=== PATIENT | female | born 2000 | race Caucasian/White ===

== ENCOUNTER 2020-11-19 13:35 | Inpatient (IN) | payer SELFPAY ==
[2020-11-19] VITALS (19 sets, daily range): BP systolic 113–138; BP diastolic 66–91; PULSE 90–125; RESP 16–22; TEMP 36.6–37; O2SAT 95–100; BMI 36.6
--- NOTE | 2020-11-19 13:37 | XR_ITS ---
WS: [id number] Portable AP upright chest, 11/19/2020 Clinical Data: reduced breath sounds Comparison: None. Findings: No nodules, masses or effusions are seen. The heart is normal. The pulmonary vascularity is not increased. No pneumonia or pneumothorax is seen. XR/XR chest 1V portable 19502 Impression: Negative chest.
--- NOTE | 2020-11-19 13:37 | ECG_ITS ---
[facility] Test Date: 2020-11-19 Pat Name: Hien Jeter Department: Room: Gender: Female Community Services Officer: : 2000 Requested By: Caio Garcia Order Number: [id number] Hu MD: Nilsa Pretty M.D. Measurements Intervals [place] Rate: 119 P: 53 DC: 147 QRS: 56 QRSD: 102 T: 34 QT: 378 QTc: 533 Interpretive Statements SINUS TACHYCARDIA POSSIBLE ANTERIOR MYOCARDIAL INFARCTION , OF INDETERMINATE AGE [30 ms Q WAVE IN V3/V4, OR R < 0.2 mV IN V4] No previous ECG available for comparison Electronically Signed On 11-21-2020 12:11:42 CDT by Nilsa Pretty M.D. [id number] f
[2020-11-19] MEDS: sodium chloride 0.9% 1,000 ML 999 ML IV (13:52)
--- NOTE | 2020-11-19 13:58 | PC.NURSE ---
Poison Control notified.
[2020-11-19 14:04] LABS: Basophils # 0.1 10^3/uL (0.0-0.1); Basophils % 0.6 %; Eosinophils # 0.2 10^3/uL (0.0-0.8); Eosinophils % 1.6 %; Hematocrit 47.5 % (37.0-47.0); Hemoglobin 15.9 g/dL (11.5-15.3); Lymphocytes # 3.3 10^3/uL (0.8-4.8); Lymphocytes % 32.7 %; Mean Corpuscular HGB Conc 33.5 g/dL (30.0-36.0); Mean Corpuscular Hemoglobin 29.7 pg (28.0-34.0); Mean Corpuscular Volume 88.8 fL (81-99); Mean Platelet Volume 9.8 fL (7.4-10.4); Monocytes # 0.8 10^3/uL (0.2-0.9); Monocytes % 7.5 %; Neutrophils # 5.78 10^3/uL (1.8-7.7); Neutrophils % 57.4 %; Nucleated Red Blood Cells % 0 %; Platelet Count 504 10^3/cmm (130-400); Red Blood Count 5.35 10^6/uL (4.1-5.3); Red Cell Distribution Width 12.2 % (12.1-15.1); White Blood Count 10.1 10^3/uL (4.0-10.0)
--- NOTE | 2020-11-19 14:13 | PC.NURSE ---
Verbal ok from pt to speak to pt sister Moraima. Updated pt sister about pt status and pending labs.
[2020-11-19 14:37] LABS: Magnesium 1.7 mg/dL (1.7-2.3)
[2020-11-19 14:44] LABS: Alanine Aminotransferase 39 U/L (0-33); Albumin Level 4.7 g/dL (3.5-5.2); Alkaline Phosphatase 51 IU/L (35-105); Aspartate Amino Transferase 15 U/L (0-32); Blood Urea Nitrogen 16 mg/dL (6-20); Calcium 9.6 mg/dL (8.5-10.5); Carbon Dioxide 28 mmol/L (22-29); Chloride 97 mmol/L (98-107); Globulin 3.2 g/dL (1.3-4.6); Glomerular Filtration Rate 89.7 mL/min (90-130); Glucose 91 mg/dL (65-115); Osmolality Calculated 287 mOsm/kg (285-295); Sodium 138 mmol/L (136-145); Thyroid Stimulating Hormone 3.98 uIU/mL (0.27-4.20); Total Bilirubin 0.2 mg/dL (0.15-1.2); Total Protein 7.9 g/dL (6.6-8.7)
[2020-11-19 14:45] LABS: Acetaminophen < 5.0 ug/mL (10-30); Salicylate < 0.3 mg/dL (3-10)
[2020-11-19 14:48] LABS: HCG Qualitative Urine. Negative (Negative)
[2020-11-19 14:52] LABS: Add Urine Microscopic? YES; Amphetamines Screen Urine Negative (Negative); Barbiturates Screen Urine Negative (Negative); Benzodiazepines Screen Urine Negative (Negative); Bilirubin Urine Neg (Negative); Blood Urine Neg (Negative); Cocaine Screen Urine Negative (Negative); Glucose Urine UA Norm (Normal); Ketones Urine Negative (Negative); Leukocyte Esterase Urine Negative (Negative); Nitrate Urine Negative (Negative); Opiate Screen Urine Negative (Negative); PCP Screen Urine Negative (Negative); Protein Urine Trace (Negative); Specific Gravity, Urine 1.015 (1.005-1.030); THC Screen Urine Negative (Negative); Urine Appearance Clear (CLEAR); Urine Color Yellow (Yellow); Urobilinogen Urine Norm (Negative); pH Urine 5 (5-7)
[2020-11-19 14:53] LABS: Bacteria Urine 1+ /hpf; RBC Urine 0-4 /hpf (0-2); Squamous Epithelial Cell Urine 0-4 /hpf (0-5); WBC Urine 0-4 /hpf (0-5)
[2020-11-19 14:55] LABS: Add Urine Culture? No
--- NOTE | 2020-11-19 15:13 | ED_ITS ---
HPI - Overdose General: Chief Complaint: Overdose Stated Complaint: SI/ OVERDOSE Time Seen by Provider: 11/19/20 13:37 History of Present Illness: HPI Narrative: Patient is a 20-year-old female with past medical history depression and suicide attempt who comes to the ER complaining of a suicide attempt. She reports at approximately 11:30 AM she took approximately 30 tabs of Benadryl which were 50 mg strength she bought [id number]. She says when she was 14 she attempted to take unknown pills to try to harm herself as well. She is drowsy on arrival but not agitated. She is answering questions and not asleep. She is A&O x4 just tired. complaint: intentional overdose Time: 11:30 Review of Systems General: Reports: 10 or more systems reviewed and unremarkable except in HPI and below Const: Denies: fatigue Eyes: Denies: change in vision, blurry vision or eye redness ENMT: Denies: throat pain, swelling of lips/tongue, ear or mastoid pain or nasal congestion Card: Denies: chest pain, palpitations, irregular heart rhythm, edema, dyspnea on exertion or orthopnea Resp: Denies: dyspnea, productive cough or non-productive cough GI: Denies: abdominal pain, diarrhea or GI cramping : Denies: flank pain, difficulty voiding, urinary frequency or urinary urgency Musc: Denies: neck pain, back pain, extremity pain, joint pain, joint redness, limited range of motion or muscle weakness Skin/Breast: Denies: rash, pruritus, erythema, skin pain or skin tenderness Neuro: Denies: headache(s), numbness in extremities, weakness in extremities, sensory changes, difficulty walking, dizziness, confusion or Slurred speech present Psych: Reports: depression and suicidal ideation; Denies: anxiety or homicidal ideation Endo: Denies: polyuria All/Imm: Denies: urticaria, throat swelling or tongue swelling Physical Exam Const: COMMON NORMALS: no acute distress, average body habitus, patient oriented x3, no limitations, healthy appearing, alert and well nourished GENERAL APPEARANCE: cooperative, comfortable, well kempt and well developed ORIENTATION/CONSCIOUSNESS: Yes awake, Yes oriented to person, Yes oriented to place and Yes oriented to time OTHER: Drowsy HENMT: COMMON NORMALS: normocephalic, external ears normal and Normal external nose present HEAD & SCALP: normal to inspection and normocephalic NOSE: Normal external nose present EXTERNAL EAR: Yes external ears normal MOUTH: Normal oral and palatal mucosa present THROAT: posterior oropharynx normal Eye: COMMON NORMALS: Equal, round and reactive pupils present and EOMs intact bilaterally GENERAL EYE: appearance normal, both eyes and all related structures PUPIL: Yes Equal, round and reactive pupils present Neck/C-Spine: COMMON NORMALS: full ROM, no lymphadenopathy, no meningeal signs and no JVD GENERAL: Yes normal visual inspection Lymph: LYMPHATIC: no lymphadenopathy noted Chest: COMMONS NORMALS: normal inspection of the chest and normal palpation of entire chest wall Resp: COMMON NORMALS: normal respiratory effort, No retractions, No use of accessory muscles, clear to auscultation bilaterally and percussion normal EFFORT & INSPECTION: Yes able to speak in complete sentences AUSCULTATION: clear to auscultation bilaterally PERCUSSION: percussion normal Cardio: COMMON NORMALS: no JVD, regular rhythm, S1 normal heart sound present, S2 normal heart sound present and Peripheral pulses 2+ throughout RATE: tachycardic (Sinus tachycardia) RHYTHM: regular rhythm HEART SOUNDS: S1 normal heart sound present and S2 normal heart sound present PERIPHERAL PULSES: Peripheral pulses 2+ throughout GI: COMMON NORMALS: Normal to inspection, nondistended, normoactive bowel sounds present, Soft to palpation, non-tender and no masses INSPECTION: Yes normal to inspection PALPATION: Yes Soft to palpation : COMMON NORMALS: Yes no CVA tenderness BLADDER/KIDNEY EXAM: Yes no CVA tenderness Back/Pelvis: COMMON NORMALS: no CVA tenderness, thoracic and lumbar spine normal to inspection, no thoracic nor lumbar tenderness and thoraco-lumbar ROM normal Extremity: COMMON NORMALS: normal to inspection, full ROM, capillary refill normal, no joint enlargement and no pedal edema GENERAL: Yes normal exam except as noted Neuro: COMMON NORMALS: patient oriented x3, CN's II-XII intact bilaterally, moves all extremities, no focal motor deficits, no sensory deficits noted and gait normal SENSORIUM/ORIENTATION: Yes alert, Yes oriented to person, Yes oriented to place and Yes oriented to time MENINGEAL SIGNS: Yes no meningeal signs Psych: COMMON NORMALS: mental status grossly normal, Normal thought process present, cooperative, normal affect and speech normal APPEARANCE: Yes well kempt ATTITUDE: Yes calm SPEECH: Yes normal speech THOUGHT PROCESS: Normal thought process present Skin: COMMON NORMALS: no rashes or lesions noted GENERAL SKIN EXAM: no rashes or lesions noted Course Vital Signs: Vital signs: Vital Signs Temperature 98.2 F 11/19/20 13:36 Pulse Rate 122 H 11/19/20 14:18 Respiratory Rate 22 H 11/19/20 14:18 Blood Pressure 127/89 11/19/20 14:18 Pulse Oximetry 100 11/19/20 14:18 MDM - Overdose MDM Narrative: Medical decision making narrative: The patient comes to the ER after apparent suicide attempt taking approximately 30 tablets of Benadryl 50 mg strength. She is drowsy on arrival and in sinus tachycardia. She was given IV fluids and potassium to supplement her hypokalemia of 3.0. Discussed with Dr. Proctor who accepts to the ICU. Poison control was contacted and recommended no acute interventions. Also discussed with Dr. Castro who will be consulted for the case. Lab Data: Labs: Lab Results 11/19/20 11/19/20 11/19/20 Range/Units 12:40 12:40 12:40 WBC 10.1 H (4.0-10.0) 10^3/ uL RBC 5.35 H (4.1-5.3) 10^6/u L Hgb 15.9 H (11.5-15.3) g/dL Hct 47.5 H (37.0-47.0) % MCV 88.8 (81-99) fL MCH 29.7 (28.0-34.0) pg MCHC 33.5 (30.0-36.0) g/dL RDW 12.2 (12.1-15.1) % Plt Count 504 H (130-400) 10^3/c mm MPV 9.8 (7.4-10.4) fL Neut % (Auto) 57.4 % Lymph % (Auto) 32.7 % Caldwell % (Auto) 7.5 % Eos % (Auto) 1.6 % Baso % (Auto) 0.6 % Neut # (Auto) 5.78 (1.8-7.7) 10^3/u L Lymph # (Auto) 3.3 (0.8-4.8) 10^3/u L Caldwell # (Auto) 0.8 (0.2-0.9) 10^3/u L Eos # (Auto) 0.2 (0.0-0.8) 10^3/u L Baso # (Auto) 0.1 (0.0-0.1) 10^3/u L Nucleated RBC % (a uto) 0 % Nucleated RBCs # 0.0 /100WBC Sodium 138 (136-145) mmol/L Potassium 3.0 L (3.5-5.1) mmol/L Chloride 97 L (98-107) mmol/L Carbon Dioxide 28 (22-29) mmol/L Anion Gap 16.0 (5-19) BUN 16 (6-20) mg/dL Creatinine 0.8 (0.5-0.9) mg/dL GFR Calculation 89.7 L (90-130) mL/min Glucose 91 (65-115) mg/dL Calculated Osmolal ity 287 (285-295) mOsm/k g Calcium 9.6 (8.5-10.5) mg/dL Magnesium 1.7 (1.7-2.3) mg/dL Total Bilirubin 0.2 (0.15-1.2) mg/dL AST 15 (0-32) U/L ALT 39 H (0-33) U/L Alkaline Phosphata se 51 (35-105) IU/L Total Protein 7.9 (6.6-8.7) g/dL Albumin 4.7 (3.5-5.2) g/dL Globulin 3.2 (1.3-4.6) g/dL TSH 3.98 (0.27-4.20) uIU/ mL HCG, Qual (Negative) Urine Color (Yellow) Urine Appearance (CLEAR) Urine pH (5-7) Ur Specific Gravit y (1.005-1.030) Urine Protein (Negative) Urine Glucose (UA) (Normal) Urine Ketones (Negative) Urine Blood (Negative) Urine Nitrate (Negative) Urine Bilirubin (Negative) Urine Urobilinogen (Negative) mg/dL Ur Leukocyte Emili ase (Negative) Urine RBC (0-2) /hpf Urine WBC (0-5) /hpf Ur Squamous Epith Cells (0-5) /hpf Amorphous Sediment Urine Bacteria (NONE) /hpf Salicylates < 0.3 L (3-10) mg/dL Urine Opiates Scre en (Negative) ng/mL Acetaminophen < 5.0 L (10-30) ug/mL Ur Barbiturates Sc reen (Negative) ng/mL Ur Phencyclidine S crn (Negative) ng/mL Ur Amphetamines Sc reen (Negative) ng/mL U Benzodiazepines Scrn (Negative) ng/mL Urine Cocaine Scre en (Negative) ng/mL U Marijuana (THC) Screen (Negative) ng/mL 11/19/20 11/19/20 11/19/20 Range/Units 14:30 14:30 14:30 WBC (4.0-10.0) 10^3/ uL RBC (4.1-5.3) 10^6/u L Hgb (11.5-15.3) g/dL Hct (37.0-47.0) % MCV (81-99) fL MCH (28.0-34.0) pg MCHC (30.0-36.0) g/dL RDW (12.1-15.1) % Plt Count (130-400) 10^3/c mm MPV (7.4-10.4) fL Neut % (Auto) % Lymph % (Auto) % [place]dwell % (Auto) % Eos % (Auto) % Baso % (Auto) % Neut # (Auto) (1.8-7.7) 10^3/u L Lymph # (Auto) (0.8-4.8) 10^3/u L [place]dwell # (Auto) (0.2-0.9) 10^3/u L Eos # (Auto) (0.0-0.8) 10^3/u L Baso # (Auto) (0.0-0.1) 10^3/u L Nucleated RBC % (a uto) % Nucleated RBCs # /100WBC Sodium (136-145) mmol/L Potassium (3.5-5.1) mmol/L Chloride (98-107) mmol/L Carbon Dioxide (22-29) mmol/L Anion Gap (5-19) BUN (6-20) mg/dL Creatinine (0.5-0.9) mg/dL GFR Calculation (90-130) mL/min Glucose (65-115) mg/dL Calculated Osmolal ity (285-295) mOsm/k g Calcium (8.5-10.5) mg/dL Magnesium (1.7-2.3) mg/dL Total Bilirubin (0.15-1.2) mg/dL AST (0-32) U/L ALT (0-33) U/L Alkaline Phosphata se (35-105) IU/L Total Protein (6.6-8.7) g/dL Albumin (3.5-5.2) g/dL Globulin (1.3-4.6) g/dL TSH (0.27-4.20) uIU/ mL HCG, Qual Negative (Negative) Urine Color Yellow (Yellow) Urine Appearance Clear (CLEAR) Urine pH 5 (5-7) Ur Specific Gravit y 1.015 (1.005-1.030) Urine Protein Trace (Negative) Urine Glucose (UA) Norm (Normal) Urine Ketones Negative (Negative) Urine Blood Neg (Negative) Urine Nitrate Negative (Negative) Urine Bilirubin Neg (Negative) Urine Urobilinogen Norm (Negative) mg/dL Ur Leukocyte Emili ase Negative (Negative) Urine RBC 0-4 H (0-2) /hpf Urine WBC 0-4 H (0-5) /hpf Ur Squamous Epith Cells 0-4 H (0-5) /hpf Amorphous Sediment Not Reportable Urine Bacteria 1+ H (NONE) /hpf Salicylates (3-10) mg/dL Urine Opiates Scre en Negative (Negative) ng/mL Acetaminophen (10-30) ug/mL Ur Barbiturates Sc reen Negative (Negative) ng/mL Ur Phencyclidine S crn Negative (Negative) ng/mL Ur Amphetamines Sc reen Negative (Negative) ng/mL U Benzodiazepines Scrn Negative (Negative) ng/mL Urine Cocaine Scre en Negative (Negative) ng/mL U Marijuana (THC) Screen Negative (Negative) ng/mL Discharge Plan Discharge Patient Disposition: Admitted As Inpatient Clinical Impression: Diphenhydramine overdose, Depression with suicidal ideation Condition: Stable Coding Level of Care Code ED Draw Furnace Tender for Marquez Green
[2020-11-19] MEDS: potassium chloride ER 20 mEq Tablet 40 MEQ PO (15:17)
--- NOTE | 2020-11-19 16:01 | P.HP_ITS ---
Providers/Chief Complaint Admitting Physician: Ed Cunha MD Chief Complaint: SI/ OVERDOSE History of Present Illness Hien Jeter is a 20 year old female with past medical history of depression, seizure disorder, type 2 diabetes mellitus, history of suicide attempt at age of 14 presents to the ER today after ingesting around 30 tabs of Benadryl along with multiple shots of Ozempic. Patient states she took a months worth of Oze mpic at 1 time. She is supposed to get 1 mg/week. Patient states she took this medication in attempt to harm herself though she does not have any further wishes to do so at this time. She states she did because she was feeling sad at that time. Currently she is complaining of dizziness and a bit of nausea and cold sweats but denies any headache, dizziness, palpitations, abdominal pain. Blood work in the ER shows a white count 10.1, hemoglobin of 15.9, platelets 07/20/2003, sodium of 138, potassium of 3, creatinine of 0.8, AST/ALT of 50/39, alkaline phosphatase of 51, UA negative for any signs of infection with negative nitrite and leukoesterase, U tox negative with EKG showing a QTC of 533. Review of Systems General: Reports: 10 or more systems reviewed and unremarkable except in HPI and below Const: Denies: fever(s), chills, body aches, change in appetite, change in weight, malaise, night sweats, diaphoresis, change in sleep pattern, daytime sleepiness or snoring Eyes: Denies: blurry vision, photophobia, eye discomfort or eye discharge ENMT: Denies: throat pain, enlarged tonsils, hoarseness, mouth pain, oral so res, dry mouth, tinnitus, nasal congestion or post nasal drip Card: Denies: chest pain, palpitations, irregular heart rhythm, edema, swelling of feet/ankles, lightheadedness, syncope, pre-syncope, dyspnea on exertion, orthopnea, leg pain with exertion or acrocyanosis Resp: Denies: dyspnea, productive cough, non-productive cough, wheezing, stridor, pain on inspiration, change in phlegm color, hemoptysis or chest congestion GI: Denies: abdominal pain, nausea, vomiting, hematemesis, coffee ground emesis, dysphagia, heartburn, diarrhea, constipation, bloating, GI cramping, change in bowel habits, pain on defecation, hematochezia or melena : Denies: flank pain, dysuria, urinary frequency, urinary urgency, urinary hesitancy, nocturia or hematuria Musc: Denies: neck pain, back pain, extremity pain, joint pain, joint sw elling, joint redness, joint stiffness or limited range of motion Neuro: Denies: headache(s), numbness in extremities, weakness in extremities, sensory changes, lack of coordination, difficulty walking, frequent falls, dizziness, vertigo, confusion, Slurred speech present, difficulty communicating thoughts or seizure-like activity Psych: Denies: anxiety, depression, mood swings, panic attacks, hopelessness or irritability Endo: Denies: polyuria, polydipsia, tired all the time, cold intolerance, excessive sweating, flushing or heat intolerance Andrew/Lymph: Denies: easy bruising or easy bleeding All/Imm: Denies: tongue swelling, facial swelling or acute wheezing Medications/Allergies Home Medications Medication Instructions Recorded Confirmed Last Taken Type escitalopram oxalate 20 mg PO DAILY@212911/19/20 11/19/20 11/18/20 History oxcarbazepine [Trileptal] 300 mg PO DAILY@212911/19/20 11/19/20 11/18/20 History semaglutide [Ozempic] 1 mg SUBCUT Q7D 11/19/20 11/19/20 11/15/20 History ziprasidone HCl [Geodon] 20 mg PO DAILY@0900 11/19/20 11/19/20 11/19/20 History Allergies Allergy/AdvReac Type Severity Reaction Status Date / Time bupropion [From Wellbutrin] Allergy ALGY-Anaphy Verified 11/19/20 13:47 laxis PFSH Acute PFSH: Medical History (Updated 11/19/20 @ 16:07 by Ed Cunha MD) Depression Seizure disorder Suicide attempt Type 2 diabetes mellitus Family History (Updated 11/19/20 @ 16:06 by Ed Cunha MD) Other Psychiatric illness Denies family history of CAD (coronary artery disease) Cancer Social History (Updated 11/19/20 @ 16:06 by Ed Cunha MD) Smoking and tobacco status: never smoked Alcohol intake: unknown Substance/Drug Use: never Lives independently: No Household members: family Housing: House Vitals/I&O/Wt Last Vital Signs Temp 98.2 F 11/19/20 13:36 Pulse 114 H 11/19/20 15:35 Resp 20 H 11/19/20 15:35 BP 132/77 11/19/20 15:35 Pulse Ox 98 11/19/20 15:35 11/19/20 11/19/20 11/19/20 06:59 14:59 22:59 Intake Total 1000 / 1000 Balance 1000 / 1000 Weight last 48 hrs Weight 99.79 kg Physical Exam Narrative: EXAM NARRATIVE: General: No acute distress, AO x3, anxious, having facial tics HEENT: PERRLA, pupils bilaterally equal and reactive Chest: Normal vesicular breath sounds, no added sounds, equal good air entry bilaterally CVS: S1-S2 regular, no murmurs, tachycardia, no gallops, no rubs Abdomen: Soft, nontender, no organomegaly, bowel sounds present Neuro: No focal deficits, no facial deformity, AO x3, power 5/5 in all limbs Psych: COMMON NORMALS: cooperative and speech normal ATTITUDE: Yes calm and Yes evasive ACTIVITY/MOTOR BEHAVIOR: No appropriate eye contact SPEECH: Yes normal speech Data : 11/19/20 12:40 11/19/20 12:40 A&P Assessment and plan (1) Diphenhydramine overdose: Status: Acute (2) Depression with suicidal ideation: Status: Acute (3) Type 2 diabetes mellitus: Status: Acute (4) Seizure disorder: Status: Acute (5) Drug overdose, intentional: Status: Acute Additional A&P Information 20-year-old female with past medical history of suicide attempt, depression, seizure disorder, type 2 diabetes mellitus presented to the ER after consuming 30 tablets of Benadryl and multiple dose of Ozempic as suicide attempt attempt. Drug overdose: Discussed case with poison control. We will have to monitor for anticholinergic effects. Monitor for tachycardia, seizure, QRS widening. Admit to ICU. Seizure precaution, fall precaution. Continue with IV fluids D5 half NS 20 mg potassium at 75 cc/h. Sitter at bedside. Psych consult. 96-hour hold. For overdose with Ozempic. Drug has a half-life of 7 days but would peak in 1 to 3 days. Mostly would cause nausea and abdominal pain but only causes hypoglycemia if taken with other OHA's. On review of medication patient is not on either antidiabetic medications. Fingerstick every 4 hours. For now hold off on any insulin. Continue other chronic medications like to reptile. We will hold off on Geodon and Celexa for now. Full code. Lovenox for DVT prophylaxis. Carb consistent diet. Attestations Medical Necessity Statement*: Patient requires admission for more than 2 midnights for suicide attempt and drug overdose with Benadryl and ozempic Time Spent in Patient Care: Greater than 35 minutes (>than 50% of time spent in counselling and/or direct pt care on unit) . Coding Level of Care Code Acute Vet Tech for Marquez Kumarid Diagnoses Diphenhydramine overdose T45.0X1A Depression with suicidal ideation F32.9; R45.851 Type 2 diabetes mellitus E11.9 Seizure disorder G40.909 Drug overdose, intentional T50.902A
[2020-11-19 16:37] LABS: NT Pro B Type Natriuretic Pept 17 pg/mL (0-125); Procalcitonin 0.04 ng/mL (0-0.5)
[2020-11-19 16:48] LABS: Iron 93 ug/dL (37-145); Total Iron Binding Capacity 344 mcg/dl; Unsaturated Iron Binding 251 ug/dL (112-347)
[2020-11-19 17:02] LABS: Alcohol Level < 10 mg/dL (0-10)
[2020-11-19 17:58] LABS: Glucose Point of Care 113 mg/dL (70-110)
[2020-11-19] MEDS: famotidine 20 mg/2 mL INJ IVP (18:26)
[2020-11-19] MEDS: enoxaparin 40 mg/0.4 mL Syringe SUBCUT (18:26)
[2020-11-19] MEDS: D5-NS 0.45% + KCL 20 mEq 20 MEQ/1,000 ML BAG 75 MEQ IV (18:27)
[2020-11-19] MEDS: OXcarbazepine 300 mg Tablet PO (20:39)
[2020-11-19 20:43] LABS: Glucose Point of Care 86 mg/dL (70-110)
--- NOTE | 2020-11-19 20:56 | PC.NURSE ---
Blood Glucose 86, sprite given to patient. V/S remain stable. Sitter at bedside.
[2020-11-19 23:22] LABS: Magnesium 1.6 mg/dL (1.7-2.3); Potassium 3.9 mmol/L (3.5-5.1)
[2020-11-19 23:50] LABS: Glucose Point of Care 91 mg/dL (70-110)
[2020-11-20] VITALS (20 sets, daily range): BP systolic 118–136; BP diastolic 78–99; PULSE 76–98; RESP 9–24; TEMP 36.7–37.1; O2SAT 93–98
[2020-11-20] MEDS: potassium chloride ER 20 mEq Tablet 40 MEQ PO (00:19)
[2020-11-20] MEDS: famotidine 20 mg/2 mL INJ IVP ×2 (03:51→16:35)
[2020-11-20 04:04] LABS: Glucose Point of Care 88 mg/dL (70-110)
[2020-11-20 04:58] LABS: Basophils # 0.1 10^3/uL (0.0-0.1); Basophils % 0.6 %; Eosinophils # 0.1 10^3/uL (0.0-0.8); Eosinophils % 1.3 %; Hematocrit 40.7 % (37.0-47.0); Hemoglobin 13.5 g/dL (11.5-15.3); Lymphocytes # 4.1 10^3/uL (0.8-4.8); Lymphocytes % 37.4 %; Mean Corpuscular HGB Conc 33.2 g/dL (30.0-36.0); Mean Corpuscular Hemoglobin 29.8 pg (28.0-34.0); Mean Corpuscular Volume 89.8 fL (81-99); Mean Platelet Volume 10.3 fL (7.4-10.4); Monocytes % 8.8 %; Neutrophils # 5.74 10^3/uL (1.8-7.7); Neutrophils % 51.8 %; Nucleated Red Blood Cells % 0 %; Platelet Count 459 10^3/cmm (130-400); Red Blood Count 4.53 10^6/uL (4.1-5.3); Red Cell Distribution Width 12.1 % (12.1-15.1); White Blood Count 11.1 10^3/uL (4.0-10.0)
[2020-11-20 05:27] LABS: Alanine Aminotransferase 25 U/L (0-33); Albumin Level 3.7 g/dL (3.5-5.2); Alkaline Phosphatase 41 IU/L (35-105); Blood Urea Nitrogen 13 mg/dL (6-20); Calcium 8.6 mg/dL (8.5-10.5); Carbon Dioxide 25 mmol/L (22-29); Chloride 104 mmol/L (98-107); Creatine Phosphokinase 62 U/L (26-192); Globulin 2.6 g/dL (1.3-4.6); Glomerular Filtration Rate 104.6 mL/min (90-130); Glucose 85 mg/dL (65-115); Osmolality Calculated 283 mOsm/kg (285-295); Phosphorus 2.4 mg/dL (2.5-4.5); Sodium 137 mmol/L (136-145); Total Bilirubin 0.3 mg/dL (0.15-1.2); Total Protein 6.3 g/dL (6.6-8.7)
[2020-11-20 05:30] LABS: Estmated Average Glucose 100; Hemoglobin A1C 5.1 % (4.0-6.0)
[2020-11-20 05:32] LABS: Anion Gap 12.2 (5-19); Aspartate Amino Transferase 15 U/L (0-32); Potassium 4.2 mmol/L (3.5-5.1)
--- NOTE | 2020-11-20 06:00 | ECG_ITS ---
[facility] Test Date: 2020-11-20 Pat Name: Hien Jeter Department: Room: ICU06 Gender: Female Chair Installer: : 2000 Requested By: Ed Cunha Order Number: [id number] Fritz MD: Nilsa Pretty M.D. Measurements Intervals [place] Rate: 89 P: 48 RI: 153 QRS: 27 QRSD: 97 T: 30 QT: 374 QTc: 457 Interpretive Statements SINUS RHYTHM POSSIBLE ANTERIOR MYOCARDIAL INFARCTION [30 ms Q WAVE IN V3/V4, OR R < 0.2 mV IN V4], PROBABLY OLD Compared to ECG 11/19/2020 14:01:20 Sinus tachycardia no longer present Myocardial infarct finding still present Electronically Signed On 11-21-2020 12:20:18 CDT by Nilsa Pretty M.D. [id number]
[2020-11-20] MEDS: D5-NS 0.45% + KCL 20 mEq 20 MEQ/1,000 ML BAG 75 MEQ IV (08:02)
[2020-11-20 08:30] LABS: Glucose Point of Care 87 mg/dL (70-110)
--- NOTE | 2020-11-20 11:34 | PM.PN ---
Subjective Subjective: Interval history: No acute events overnight. Patient has remained hemodynamically stable. Denies any nausea, vomiting, headache. Seems more jovial today. Sitting up in bed. Afebrile overnight. Vitals/I&O/Wt Last Vital Signs Temp 98.7 F 11/20/20 10:00 Pulse 94 11/20/20 10:00 Resp 18 11/20/20 10:00 BP 127/84 11/20/20 10:00 Pulse Ox 93 11/20/20 10:00 11/19/20 11/20/20 11/20/20 22:59 06:59 14:59 Intake Total 1440 / 1440 252 / 1692 1000 / 1000 Balance 1440 / 1440 252 / 1692 1000 / 1000 Weight last 48 hrs Weight 108.499 kg Weight 99.79 kg Physical Exam Narrative: EXAM NARRATIVE: General: No acute distress, AO x3, having facial tics HEENT: PERRLA, pupils bilaterally equal and reactive Chest: Normal vesicular breath sounds, no added sounds, equal good air entry bilaterally CVS: S1-S2 regular, no murmurs, tachycardia, no gallops, no rubs Abdomen: Soft, nontender, no organomegaly, bowel sounds present Neuro: No focal deficits, no facial deformity, AO x3, power 5/5 in all limbs Psych: COMMON NORMALS: cooperative and speech normal ATTITUDE: Yes calm and Yes evasive ACTIVITY/MOTOR BEHAVIOR: No appropriate eye contact SPEECH: Yes normal speech Data : 11/20/20 04:15 11/20/20 04:15 Micro: Microbiology 11/19/20 16:44 Blood Culture - Preliminary Blood SPECIMEN COLLECTED 11/19/20 16:39 Blood Culture - Preliminary Blood SPECIMEN COLLECTED A&P Assessment and plan (1) Diphenhydramine overdose: Status: Acute (2) Depression with suicidal ideation: Status: Acute (3) Type 2 diabetes mellitus: Status: Acute (4) Seizure disorder: Status: Acute (5) Drug overdose, intentional: Status: Acute Additional A&P Information 20-year-old female with past medical history of suicide attempt, depression, seizure disorder, type 2 diabetes mellitus presented to the ER after consuming 30 tablets of Benadryl and multiple dose of Ozempic as suicide attempt attempt. Drug overdose: Discussed case with poison control. We will have to monitor for anticholinergic effects. Monitor for tachycardia, seizure, QRS widening. Seizure precaution, fall precaution. Patient is eating and drinking well. Switch to regular diet. Stop IV fluids. Sitter at bedside. Psych consult. Transfer to FORENSIC EXAMINER once medically cleared. 96-hour hold. Electrolytes stable. For overdose with Ozempic. Drug has a half-life of 7 days but would peak in 1 to 3 days. Mostly would cause nausea and abdominal pain but only causes hypoglycemia if taken with other OHA's. On review of medication patient is not on either antidiabetic medications. Fingerstick every 4 hours. For now hold off on any insulin. Type 2 diabetes mellitus: HbA1c 5.1. Patient is Ozempic at home. For now continue to hold off due to a drug overdose. Continue other chronic medications like oxcarbazepine. We will hold off on Geodon and Celexa for now. Full code. Lovenox for DVT prophylaxis. Regular diet. Attestations Medical Necessity Statement*: Requires further hospitalization for management of suicidal ideation, drug overdose. 96-hour hold. Time Spent in Patient Care: Greater than 35 minutes (>than 50% of time spent in counselling and/or direct pt care on unit). Coding Level of Care Code Acute It Technician for Chg Fwd Exam Problem Focused Diagnoses Diphenhydramine overdose T45.0X1A Depression with suicidal ideation F32.9; R45.851 Type 2 diabetes mellitus E11.9 Seizure disorder G40.909 Drug overdose, intentional T50.902A
--- NOTE | 2020-11-20 12:37 | PC.CHAP ---
Pastoral Care Encounter/Spiritual Assessment Type of Contact [] Declined culinary instructor visit [] Patient/Family/Request visit [] Outpatient visit [] Follow-up visit [] Physician referral [] Code/Alert [] Routine visit [XX] Staff referral [] Actively dying [] Patient sleeping [] Family support [] [] Out of room [] Palliative care [] [] Receiving care in room [] Pre-surgical visit [] Trauma [] Long length of stay [] ICU visit [] Other: Relational/Emotional Strength [] Patient feels connected with others/family/visitors/staff [XX] Distress [] Loneliness/isolation [] Abandonment Spirituality of Patient [] Person of Ryanne [XX] Attends Buddhist of their Ryanne [] Believes in Prayer [] Reads Bible or Denominational materials [XX] There are Spiritual issues to be addressed Metal Solderer Interventions [XX] Prayer [XX] Active listening [XX] Non-anxious presence [] Spiritual/emotional support [] Crisis/trauma care [] Spiritual counseling [] Bereavement support [] Provided bereavement packet [] Provided Bible/devotional materials [] Provided toy/stuffed animal, coloring book to patient or family member [] Provided Communion [] Anointing/Zoar [] Salvation [XX] Completed spiritual assessment [] Other: Impact on Illness or Injury [] Angry [] Fearful [] Anxious [] Often cries [] Exhaustion [] Unable to work [] Unable to attend denominational [] Unable to walk/stand [] Unable to read [] Unable to drive [] Unable to eat/drink [] Unable to sleep [] Unable to be with family [] Patient intubated [XX] Other: hopelessness and depression Summary: Pt attempted to take her life by taking sleeping pills. Pt's mother found her and took her to the ambulance. Pt and her family moved 1 month ago from [place]. Pt's parents lived her previously, but pt and her sister have never lived here. Pt willing to answer questions but never elaborated on her answers. 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 Pt could not describe what brings her kirstie. When asked what a normal day is like for her, she said that she isolates. Pt was interested in prayer (culinary instructor and pt prayed); pt is also thankful that she remains alive. Time spent with patient: 25 mins
--- NOTE | 2020-11-20 13:30 | PM.PSYCN ---
Providers/Reason for Consult Consulting Physican/Specialty*: Bria Castro DO Reason for Consult*: Overdose/depression Attending Physician: Ed Cunha MD Psych Consult HPI History of Present Illness Hien Jeter is a 20 year old female with unclear past psychiatric history but reports being managed by a psychiatrist in [facility] prior to moving to [facility] in the last couple months presented to the emergency department after overdose of Benadryl after an argument with her parents. Patient states that she had been feeling depressed for the past couple of months since moving to the local area from [place], states that she had had intermittent suicidal thoughts but states that she had no intent or plan of ending her life but became overwhelmed by her emotions. Patient reports past episodes of depression lasting for several weeks on a daily basis with significant impairment related to her depressive symptoms. She reports past suicide attempt by overdose at age 14. Patient reports past manic/hypomanic episodes in which she had a decreased need for sleep, sense of feeling pressured, irritability with last episode occurring in the past couple of weeks but states that it started around age 14 and has been treated with mood stabilizing medication including most recently Trileptal, Geodon and Lexapro. She currently denies any suicidal thoughts or thoughts about self-harm. Patient states that she has incidence of hearing her name called or hearing things particularly during time periods in which she has worsening depressive symptoms, currently denies any auditory or visual hallucinations, denies any delusions. Patient has a history of motor tics as well as obsessions and compulsions and is currently treated with Lexapro 30 mg daily. Psychiatric review of systems is otherwise negative. Patient denies any contact with a psychiatrist or mental health in the local area and denies any past counseling or therapy. 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 Review of Systems General: Reports: 10 or more systems reviewed and unremarkable except in HPI and below Meds Current Medications: Current Medications Generic Name Dose Route Start Last Admin Trade Name Freq PRN Reason Stop Dose Admin Enoxaparin Sodium 40 mg 11/19/20 18:00 11/19/20 18:26 Enoxaparin 40 Mg /0.4 Ml Syringe SUBCUT 40 mg Q24H ADRIENNE Administration Famotidine 20 mg 11/19/20 16:34 11/20/20 03:51 Famotidine 20 Mg /2 Ml Inj IVP 20 mg Q12H ADRIENNE Administration Potassium Chloride /Dextrose/Sod Cl 20 meq in 1,000 m ls @ 75 mls/hr 11/19/20 16:34 11/20/20 08:02 D5-Ns 0.45% + Jaswant l 20 Meq IV 75 mls/hr .[id number] ADRIENNE Administration Oxcarbazepine 300 mg 11/19/20 21:30 11/19/20 20:39 Oxcarbazepine 30 0 Mg Tablet PO 300 mg DAILY@2130 ADRIENNE Administration PFSH NPU PFSH: Medical History Depression Seizure disorder Suicide attempt Type 2 diabetes mellitus Family History Other Psychiatric illness Denies family history of CAD (coronary artery disease) Cancer Social History Smoking and tobacco status: never smoked Alcohol intake: unknown Substance/Drug Use: never Lives independently: No Household members: family Housing: House Other Psychiatric History: Other Psychiatric History: Reports first contact with mental health being at age 14 secondary to worsening behaviors, mood symptoms, overdose attempt, psychiatric hospitalization Denies any contact with mental health in the local area, last contact was in [facility] couple months ago prior to moving to the local area Mental Status Exam MSE Comments: Sitting up in bed, preparing to eat lunch, overweight, wearing hospital gown, calm, cooperative, occasional motor tics with eyebrows, good eye contact, polite and interactive Psychomotor activity is neither increased or decreased, no agitation Speech is somewhat soft, normal rate, spontaneous, clear articulation, not pressured I feel exhausted, congruent affect, not labile Alert and oriented to person, place, time, situation Memory and concentration appear to be intact per interview Intellectual functioning appears to be average based on vocabulary, interview Thought process, linear, no flight of ideas, no looseness of associations Thought content, no delusions, no hallucinations, no suicidal or homicidal ideation Insight and judgment appear to be fair Vitals/I&O/Wt Last Vital Signs Temp 98.8 F 11/20/20 11:00 Pulse 95 11/20/20 12:00 Resp 20 H 11/20/20 12:00 BP 133/90 11/20/20 12:00 Pulse Ox 95 11/20/20 12:00 11/19/20 11/20/20 11/20/20 22:59 06:59 14:59 Intake Total 1440 / 1440 252 / 1692 1000 / 1000 Balance 1440 / 1440 252 / 1692 1000 / 1000 Weight last 48 hrs Weight 108.499 kg Weight 99.79 kg Data NPU Micro: Micro: Microbiology 11/19/20 16:44 Blood Culture - Pr eliminary Blood SPECIMEN COLLE ENRIQUETA 11/19/20 16:39 Blood Culture - Pr eliminary Blood SPECIMEN [facility] Microbiology 11/19/20 16:44 Blood Blood Culture - Preliminary SPECIMEN COLLECTED 11/19/20 16:39 Blood Blood Culture - Preliminary SPECIMEN COLLECTED A&P Assessment and plan (1) Drug overdose, intentional: Status: Acute Qualifiers: Encounter type: subsequent encounter Qualified Code(s): T50.902D - Poisoning by unspecified drugs, medicaments and biological substances, intentional self-harm, subsequent encounter (2) Bipolar disorder, unspecified: Status: Acute Qualifiers: Active/Remission status: currently active Current bipolar episode type: depressed Current episode severity: severe Psychotic features: with psychotic features Qualified Code(s): F31.5 - Bipolar disorder, current episode depressed, severe, with psychotic features Additional A&P Information Patient reports recent argument with parents leading to impulsive overdose, reports worsening depressive symptoms over the past couple months with psychotic features, treated with Trileptal, Geodon, Lexapro. Continues to report severe depressive symptoms with impairment. Psychiatric hospitalization is indicated for medication stabilization, observation, coordination for safe discharge including post discharge mental health follow-up. Continue to hold home medications while in ICU with plan to restart after transfer to inpatient psychiatry Attestations NPU Medical Necessity Statement*: Continues to be under monitoring post toxic ingestion Time Spent in Patient Care: Greater than 35 minutes (>than 50% of time spent in counselling and/or direct pt care on unit). Coding Level of Care Code Acute Managed Services Sales Consultant for Marquez Green Diagnoses Drug overdose, intentional T50.902D Encounter type: subsequent encounter Bipolar disorder, unspecified F31.5 Active/Remission status: currently active Current bipolar episode type: depressed Current episode severity: severe Psychotic features: with psychotic features
--- NOTE | 2020-11-20 16:41 | PC.NURSE ---
Addendum entered by Carlene Quintero RN 11/20/20 16:42: error. time wasnt changed on note. this occurred at 0650 Original Note: bedside report received. no needs or SI voiced at this time. Room checked for safety. sitter at bedside.
[2020-11-20] MEDS: enoxaparin 40 mg/0.4 mL Syringe SUBCUT (18:33)
[2020-11-20 19:58] LABS: Glucose Point of Care 87 mg/dL (70-110)
[2020-11-20 20:40] LABS: Glucose Point of Care 91 mg/dL (70-110)
[2020-11-20] MEDS: OXcarbazepine 300 mg Tablet PO (21:13)
[2020-11-21] VITALS (14 sets, daily range): BP systolic 101–134; BP diastolic 61–84; PULSE 65–103; RESP 14–24; TEMP 36.5–37.1; O2SAT 9–100; BMI 39.2
[2020-11-21 00:08] LABS: Glucose Point of Care 78 mg/dL (70-110)
[2020-11-21 00:44] LABS: Glucose Point of Care 116 mg/dL (70-110)
[2020-11-21 02:23] LABS: Glucose Point of Care 72 mg/dL (70-110)
[2020-11-21 03:08] LABS: Glucose Point of Care 109 mg/dL (70-110)
[2020-11-21 04:38] LABS: Basophils # 0.1 10^3/uL (0.0-0.1); Basophils % 0.5 %; Eosinophils # 0.2 10^3/uL (0.0-0.8); Eosinophils % 1.4 %; Hematocrit 42.2 % (37.0-47.0); Hemoglobin 14.1 g/dL (11.5-15.3); Lymphocytes # 4.4 10^3/uL (0.8-4.8); Lymphocytes % 36.9 %; Mean Corpuscular HGB Conc 33.4 g/dL (30.0-36.0); Mean Corpuscular Volume 89.8 fL (81-99); Mean Platelet Volume 9.4 fL (7.4-10.4); Monocytes % 8.5 %; Neutrophils # 6.26 10^3/uL (1.8-7.7); Neutrophils % 52.4 %; Nucleated Red Blood Cells % 0 %; Platelet Count 413 10^3/cmm (130-400); Red Cell Distribution Width 11.9 % (12.1-15.1); White Blood Count 11.9 10^3/uL (4.0-10.0)
[2020-11-21 05:14] LABS: Alanine Aminotransferase 23 U/L (0-33); Albumin Level 3.8 g/dL (3.5-5.2); Alkaline Phosphatase 44 IU/L (35-105); Anion Gap 12.1 (5-19); Aspartate Amino Transferase 13 U/L (0-32); Blood Urea Nitrogen 10 mg/dL (6-20); Calcium 8.7 mg/dL (8.5-10.5); Carbon Dioxide 27 mmol/L (22-29); Chloride 103 mmol/L (98-107); Globulin 2.6 g/dL (1.3-4.6); Glomerular Filtration Rate 104.6 mL/min (90-130); Glucose 98 mg/dL (65-115); Osmolality Calculated 285 mOsm/kg (285-295); Potassium 4.1 mmol/L (3.5-5.1); Sodium 138 mmol/L (136-145); Total Bilirubin 0.2 mg/dL (0.15-1.2); Total Protein 6.4 g/dL (6.6-8.7)
[2020-11-21] MEDS: famotidine 20 mg/2 mL INJ IVP (05:33)
--- NOTE | 2020-11-21 05:37 | PC.NURSE ---
Nursing summary Pt blood sugars fluctuated throughout night, several snacks provided with post snack accu checks. Facial tardive dyskinesia noted, in shift change report this was reported as baseline and MD aware. Pt remained seizure free throught shift, was pleasant and cooperative, at beginning of shift she did have tearful episode, expressed feelings and said she felt better afterwards. She verbally agreed to report feelings of suicide and to do no harm to self.
[2020-11-21 06:32] LABS: Glucose Point of Care 112 mg/dL (70-110)
[2020-11-21 07:54] LABS: Glucose Point of Care 94 mg/dL (70-110)
--- NOTE | 2020-11-21 10:19 | P.PN_ITS ---
Subjective Subjective: Interval history: No acute events overnight. Complaining of itching on body on and off. She says she has itching at home also for which takes benadryl. Patient has remained hemodynamically stable. Denies any nausea, vomiting, headache. Seems more jovial today. Sitting up in bed. Afebrile overnight. Vitals/I&O/Wt Last Vital Signs Temp 98.1 F 11/21/20 04:00 Pulse 78 11/21/20 07:53 Resp 14 11/21/20 07:53 BP 128/84 11/21/20 07:53 Pulse Ox 98 11/21/20 07:53 11/20/20 11/21/20 11/21/20 22:59 06:59 14:59 Intake Total 889.25 / 1889.25 1038 / 2927.25 120 / 120 Output Total Balance 889.25 / 1889.25 1037 / 2926.25 120 / 120 Weight last 48 hrs Weight 107.456 kg Weight 108.499 kg Weight 99.79 kg Physical Exam Narrative: EXAM NARRATIVE: General: No acute distress, AO x3, having facial tics HEENT: PERRLA, pupils bilaterally equal and reactive Chest: Normal vesicular breath sounds, no added sounds, equal good air entry bilaterally CVS: S1-S2 regular, no murmurs, tachycardia, no gallops, no rubs Abdomen: Soft, nontender, no organomegaly, bowel sounds present Neuro: No focal deficits, no facial deformity, AO x3, power 5/5 in all limbs Psych: COMMON NORMALS: cooperative and speech normal ATTITUDE: Yes calm and Yes evasive ACTIVITY/MOTOR BEHAVIOR: No appropriate eye contact SPEECH: Yes normal speech Data : 11/21/20 04:19 11/21/20 04:19 Micro: Microbiology 11/19/20 16:44 Blood Culture - Preliminary Blood NEGATIVE TO DATE 11/19/20 16:39 Blood Culture - Preliminary Blood NEGATIVE TO DATE A&P Assessment and plan (1) Diphenhydramine overdose: Status: Acute (2) Depression with suicidal ideation: Status: Acute (3) Type 2 diabetes mellitus: Status: Acute (4) Seizure disorder: Status: Acute (5) Drug overdose, intentional: Status: Acute Qualifiers: Encounter type: subsequent encounter Qualified Code(s): T50.902D - Poisoning by unspecified drugs, medicaments and biological substances, intentional self-harm, subsequent encounter Additional A&P Information 20-year-old female with past medical history of suicide attempt, depression, seizure disorder, type 2 diabetes mellitus presented to the ER after consuming 30 tablets of Benadryl and multiple dose of Ozempic as suicide attempt attempt. Drug overdose: Discussed case with poison control. We will have to monitor for anticholinergic effects. Monitor for tachycardia, seizure, QRS widening. Seizure precaution, fall precaution. Patient is eating and drinking well. Switch to regular diet. Sitter at bedside. Psych consult. Transfer to NPU. Patient medically stable to be moved. 96-hour hold. Electrolytes stable. For overdose with Ozempic. Drug has a half-life of 7 days but would peak in 1 to 3 days. Mostly would cause nausea and abdominal pain but only causes hypoglycemia if taken with other OHA's. On review of medication patient is not on either antidiabetic medications. Fingerstick AC and HS. Insulin modified low-dose protocol. Type 2 diabetes mellitus: HbA1c 5.1. Patient is Ozempic at home. For now continue to hold off due to a drug overdose. Continue other chronic medications like oxcarbazepine. We will hold off on Geodon and Celexa for now. Full code. Lovenox for DVT prophylaxis. Regular diet. Attestations Medical Necessity Statement*: Requires hospitalization for management of suicide attempt and drug overdose. 96 hr hold. Time Spent in Patient Care: Greater than 35 minutes (>than 50% of time spent in counselling and/or direct pt care on unit) . Coding Level of Care Code Acute Railroad Emergency Services Manager for [employer] Green Exam Problem Focused Diagnoses Diphenhydramine overdose T45.0X1A Depression with suicidal ideation F32.9; R45.851 Type 2 diabetes mellitus E11.9 Seizure disorder G40.909 Drug overdose, intentional T50.902D Encounter type: subsequent encounter
[2020-11-21 11:07] LABS: Glucose Point of Care 106 mg/dL (70-110)
[2020-11-21] MEDS: loratadine 10 mg Tablet PO ×2 (11:25→20:09)
--- NOTE | 2020-11-21 12:13 | ECG_ITS ---
[facility] Test Date: 2020-11-21 Pat Name: Hien Jeter Department: Room: 155 Gender: Female Lens Coater: : 2000 Requested By: Bria Valdez Order Number: [id number] Fritz MD: Nilsa rPetty M.D. Measurements Intervals [place] Rate: 108 P: 46 NE: 143 QRS: 37 QRSD: 90 T: 12 QT: 320 QTc: 429 Interpretive Statements SINUS TACHYCARDIA POSSIBLE LEFT ATRIAL ENLARGEMENT [-0.1mV P WAVE IN V1/V2] POSSIBLE ANTERIOR MYOCARDIAL INFARCTION [30 ms Q WAVE IN V3/V4, OR R < 0.2 mV IN V4], PROBABLY OLD Compared to ECG 11/20/2020 06:40:59 Sinus rhythm no longer present Myocardial infarct finding still present Electronically Signed On 11-23-2020 17:43:17 CDT by Nilsa Pretty M.D. [email or web address] [id number]
--- NOTE | 2020-11-21 12:30 | P.HP_ITS ---
Providers/Chief Complaint Admitting Physician: Ed Cunha MD Chief Complaint: SI/ OVERDOSE HPI NPU History of Present Illness Hien Jeter is a 20 year old female her disorder unspecified admitted to the ICU after toxic ingestion of Benadryl, patient subsequently monitored with serial ECG and observation and determined to be medically stable with transfer to inpatient psychiatry. Patient reports current depressive symptoms 11/22, denies any interval suicidal ideation or thoughts about self-harm. Patient continues to be remorseful about which she describes as impulsive, reactive gesture in the context of argument with her mother and sister. Reports seeing some shadows but states that she feels like it may be from sleep restriction secondary to poor sleep over the past couple days since toxic ingestion. She denies any auditory hallucinations, denies any delusions. Denies any interval manic or hypomanic related symptoms. Reports improving appetite, per above, states sleep is still poor. Patient communicates her understanding of need for post discharge counseling as well as gradual reintroduction of home medication. Review of Systems 2 General: Reports: 10 or more systems reviewed and unremarkable except in HPI and below Meds NPU Home Medications Medication Instructions Recorded Confirmed Last Taken Type escitalopram oxalate 20 mg PO DAILY@212911/19/20 11/19/20 11/18/20 History oxcarbazepine [Trileptal] 300 mg PO DAILY@212911/19/20 11/19/20 11/18/20 History semaglutide [Ozempic] 1 mg SUBCUT Q7D 11/19/20 11/19/20 11/15/20 History ziprasidone HCl [Geodon] 20 mg PO DAILY@0900 11/19/20 11/19/20 11/19/20 History Allergies Allergy/AdvReac Type Severity Reaction Status Date / Time bupropion [From Wellbutrin] Allergy ALGY-Anaphy Verified 11/19/20 13:47 laxis PFSH NPU PFSH: Medical History Depression Seizure disorder Suicide attempt Type 2 diabetes mellitus Family History Other Psychiatric illness Denies family history of CAD (coronary artery disease) Cancer Social History (Reviewed 11/21/20 @ 12:31 by DOROTHY Shearer Smoking and tobacco status: never smoked Alcohol intake: unknown Substance/Drug Use: never Lives independently: No Household members: family Housing: House Other Psychiatric History: Other Psychiatric History: No changes since consult note completed by this interviewer yesterday, 11/20/2020 Mental Status Exam MSE Comments: Patient is sitting on her bed, appropriately groomed and dressed in hospital scrubs, overweight, calm, cooperative, good eye contact Psychomotor activity is neither increased or decreased, no agitation Speech is normal volume, normal rate, spontaneous, clear articulation, not pressured I feel exhausted, congruent affect, not labile Alert and oriented to person, place, time, situation Memory and concentration appear to be intact per interview Intellectual functioning appears to be average based on vocabulary, interview Thought process, linear, no flight of ideas, no looseness of associations Thought content, no delusions, no hallucinations, no suicidal or homicidal ideation Insight and judgment appear to be fair Vitals/I&O/Wt Last Vital Signs Temp 97.7 F 11/21/20 10:00 Pulse 72 11/21/20 10:00 Resp 14 11/21/20 10:00 BP 124/81 11/21/20 10:00 Pulse Ox 9 L 11/21/20 10:00 11/20/20 11/21/20 11/21/20 22:59 06:59 14:59 Intake Total 889.25 / 1889.25 1038 / 2927.25 240 / 240 Output Total Balance 889.25 / 1889.25 1037 / 2926.25 240 / 240 Weight last 48 hrs Weight 107.048 kg Weight 107.456 kg Weight 108.499 kg Weight 99.79 kg Data NPU : 11/21/20 04:19 11/21/20 04:19 Micro: Microbiology 11/19/20 16:44 Blood Culture - Preliminary Blood NEGATIVE TO DATE 11/19/20 16:39 Blood Culture - Preliminary Blood NEGATIVE TO DATE Microbiology 11/19/20 16:44 Blood Blood Culture - Preliminary NEGATIVE TO DATE 11/19/20 16:39 Blood Blood Culture - Preliminary NEGATIVE TO DATE A&P Assessment and plan (1) Drug overdose, intentional: Status: Acute Qualifiers: Encounter type: subsequent encounter Qualified Code(s): T50.902D - Poisoning by unspecified drugs, medicaments and biological substances, intentional self-harm, subsequent encounter (2) Bipolar disorder, unspecified: Status: Acute Qualifiers: Active/Remission status: currently active Current bipolar episode type: depressed Current episode severity: severe Psychotic features: with psychotic features Qualified Code(s): F31.5 - Bipolar disorder, current episode depressed, severe, with psychotic features Additional A&P Information Patient reports improving mood symptoms although continues report significant depressive symptoms with no interval suicidal ideation since consult evaluation yesterday. Patient has history of OCD and currently denies any bothersome obsessions or compulsions but reports intermittent anxiety which is exacerbated by ongoing life stress. Patient would benefit from slow reintroduction of home medication, although patient does have history per chart of seizure disorder, unclear if this is purpose of Trileptal but will also slowly titrate this medication up with coordinated follow-up outpatient post discharge. Serial EKGs have not demonstrated prolonged QT but will follow-up with serial EKG prior to r eintroducing Lexapro and Geodon at a low dose. INVOLUNTARY ADMIT to inpatient psychiatry START Geodon 20 mg by mouth twice daily targeting mood START Trileptal 300 mg by mouth daily for mood, history of seizure disorder START Lexapro 10 mg by mouth daily targeting depressive symptoms, mood, history of OCD Encourage patient to participate in unit activities to include group sessions, unit milieu Coordinate with social and human services assistant for post discharge mental health care follow-up, neurology follow-up for history of seizure disorder, primary care follow-up Attestations NPU Medical Necessity Statement*: Psychiatric hospitalization is indicated for recent suicidal gesture with intentional overdose to monitor for any subsequent suicidal ideation/behaviors, medication reintroduction/stabilization, coordinati on for safe discharge Anticipate hospital stay to exceed 2 midnights Time Spent in Patient Care: Greater than 35 minutes (>than 50% of time spent in counselling and/or direct pt care on unit) . Coding Level of Care Code Acute Assistant Product Manager for [employer] Diagnoses Drug overdose, intentional T50.902D Encounter type: subsequent encounter Bipolar disorder, unspecified F31.5 Active/Remission status: currently active Current bipolar episode type: depressed Current episode severity: severe Psychotic features: with psychotic features
[2020-11-21] MEDS: escitalopram 10 mg Tablet PO (14:28)
[2020-11-21 17:04] LABS: Glucose Point of Care 94 mg/dL (70-110)
[2020-11-21] MEDS: ziprasidone hcl 20 mg Capsule PO (17:34)
[2020-11-21 18:25] LABS: Potassium, Radom Urine 12 mmol/L; Urine Random Chloride 25 mmol/L; Urine Random Sodium 31 mmol/L
[2020-11-21] MEDS: OXcarbazepine 300 mg Tablet PO (19:58)
[2020-11-21 20:05] LABS: Glucose Point of Care 123 mg/dL (70-110)
[2020-11-22 06:00] VITALS: BP 114/64; PULSE 83; RESP 16; TEMP 36; O2SAT 98
[2020-11-22 06:32] LABS: Glucose Point of Care 92 mg/dL (70-110)
[2020-11-22] MEDS: escitalopram 10 mg Tablet PO (08:14)
[2020-11-22] MEDS: loratadine 10 mg Tablet PO (08:14)
[2020-11-22] MEDS: ziprasidone hcl 20 mg Capsule PO (08:15)
--- NOTE | 2020-11-22 09:44 | PM.NDC ---
Diagnoses at Discharge Discharge Diagnosis (1) Drug overdose, intentional: Status: Acute Qualifiers: Encounter type: subsequent encounter Qualified Code(s): T50.902D - Poisoning by unspecified drugs, medicaments and biological substances, intentional self-harm, subsequent encounter (2) Bipolar disorder, unspecified: Status: Acute Qualifiers: Active/Remission status: currently active Current bipolar episode type: depressed Current episode severity: severe Psychotic features: with psychotic features Qualified Code(s): F31.5 - Bipolar disorder, current episode depressed, severe, with psychotic features Reason for Visit Reason for Visit: SI/ OVERDOSE Hospital Course Hospital Course 20-year-old female with history of bipolar disorder presented to the emergency department and subsequently admitted to the ICU for monitoring after toxic ingestion of Benadryl. Patient states that she had been in an argument with her mother and sister and had responded in a reactive, impulsive manner. Patient did report having some depressive symptoms over the past couple of months since relocating to the local area from [facility] and states that she had been followed by outpatient psychiatry for bipolar disorder and was compliant with her medications prior to presenting to the emergency department. Patient's medication was held while she was observed in the ICU with serial EKG monitoring. Additional EKG was obtained, which was unremarkable, after transfer to inpatient psychiatry prior to titrating up on home medications. Patient tolerated reintroduction of medication well with no reports of any medication side effects and reported improving appetite with some difficulty with sleep initially. Patient was reporting some depressive symptoms but denied any suicidal ideation or thoughts about self-harm throughout her hospital stay to include her stent in the ICU. Patient is future oriented and looking forward to seeking employment in the local area. Patient was able to communicate her understanding of the plan to follow-up with outpatient mental health for medication management and counseling. Patient was not suicidal and was denying any depressive symptoms at the time of discharge and did not appear to pose an imminent threat of harm to self or others. Low to moderate risk of harm to self given no current suicidal ideation and no active psychiatric symptoms although patient's risk may be elevated given that the patient has a past episode of intentional overdose 6 years ago as a teenager and most recently in the context of an argument with her mother with a parent reactive, maladaptive coping. Continued utilization of impulsive, reactive coping strategies or noncompliance with her medication or counseling follow-up will continue to elevate her risk in the situations. Risk mitigation included ICU admission for observation with subsequent transfer to inpatient psychiatry for further observation for any ongoing suicidal ideation or behaviors, recommendation to continue compliance with her medication, medication management follow-up as well as the need for counseling targeting the development of more adaptive, mature coping strategies in the context of ongoing life stress. Patient was able to communicate her understanding of the need to be less reactive and impulsive in the context of acute stressors as well as the need for ongoing compliance with her medication and medication management follow-up and the need for counseling to develop more adaptive coping strategies in order to further mitigate her risk of harm to self and others. Involuntary Hold Information 96 Hour Hold: 96 Hour Involuntary Admission: Yes 96 Hour Hold Ending Date: 11/25/20 96 Hour Hold Ending Time: 15:17 Mental Status Exam MSE Comments: Appropriately groomed and dressed, calm, cooperative, interactive, sitting up on her bed, good eye contact Psychomotor activity is neither increased or decreased, no agitation Speech is normal volume, normal rate, spontaneous, clear articulation, not pressured I feel much better, congruent affect, smiles appropriately at times during interview, not labile Alert and oriented to person, place, time, situation Memory and concentration appear to be intact per interview Thought process, linear, no flight of ideas, no looseness of associations Thought content, no delusions, no hallucinations, no suicidal or homicidal ideation Insight and judgment appear to be fair to intact Discharge Data Data Completed and Pending: Completed Studies During Hospitalization Category Date Time Status XR chest 1V diogo ble [id number] Urgent Exams 11/19/20 13:37 Completed Pending at discharge Category Date Time Status Blood Culture Sta t Lab 11/19/20 16:44 Results Labs from last 24 hours 11/22/20 11/21/20 11/21/20 06:29 19:53 17:00 POC Glucose 92 123 H 94 Ur Random Sodium Ur Random Potassiu m Ur Random Chloride 11/21/20 11/19/20 11:03 18:00 POC Glucose 106 Ur Random Sodium 31 Ur Random Potassiu m 12 Ur Random Chloride 25 Vitals: Last Vital Signs Temp 96.8 F L 11/22/20 06:00 Pulse 83 11/22/20 06:00 Resp 16 11/22/20 06:00 BP 114/64 11/22/20 06:00 Pulse Ox 98 11/22/20 06:00 Discharge Plan Discharge Patient Disposition: Home Condition: Stable Prescriptions: New escitalopram oxalate 10 mg Tablet 30 mg PO DAILY Qty: 30 RF: 0 oxcarbazepine 300 mg Tablet 900 mg PO DAILY@2130 Qty: 30 RF: 0 ziprasidone HCl 40 mg Capsule 80 mg PO QPM Qty: 60 RF: 0 Continued Ozempic 1 mg/dose (2 mg/1.5 mL) pen injector 1 mg SUBCUT Q7D RF: 0 Discontinued Trileptal 300 mg tablet 300 mg PO DAILY@2130 RF: 0 Geodon 20 mg capsule 20 mg PO DAILY@0900 RF: 0 escitalopram oxalate 20 mg tablet 20 mg PO DAILY@2130 RF: 0 Discharge Orders: Discharge Order (Routine); Ordered 11/22/20 Ordered By: Bria Castro Referrals: [facility] Financial Assistance [Other] (Please contact a financial assistance counselor at the number listed if interested in applying for financial assistance. You can discuss with them the financial assistance for hospital and for clinics in case you do decide to follow up with our Behavioral Healthcare Clinic in [place].) [facility] [Provider Group] ([facility] Hotline: ) [facility] [Provider Group] ([facility] . Address: [address] [place], [place] [id number]. You can go to this clinic during business hours to do intake and be set up for Behavioral Health services at the clinic. Sunday- Sunday Hours: 8am-5pm. ) Discharge Diet: Diabetic Discharge Activity: Resume usual activity Patient Instructions: Opioid Safety Discharge Attestations NPU Time Spent in Discharge Care*: greater than 30 min Status at Discharge: Cognitive status at discharge: cognitively intact, Behavioral status at discharge: cooperative, Functional status at discharge: independent ambulation Overall status at discharge: patient is back to baseline Coding Level of Care Code Acute Chg FW DC note Diagnoses Drug overdose, intentional T50.902D Encounter type: subsequent encounter Bipolar disorder, unspecified F31.5 Active/Remission status: currently active Current bipolar episode type: depressed Current episode severity: severe Psychotic features: with psychotic features
[2020-11-22 10:00] VITALS: RESP 18; TEMP 36
[2020-11-22 11:13] VITALS: PULSE 93; RESP 18; O2SAT 98
== END 2020-11-22 12:49 | disposition home or self-care (01) | DRG 918 ==
LOC: ER 15:16 → ICU 15:30 → NP 11-21 12:08
PROVIDERS: Internal Medicine; Admitting Provider Student in an Organized Health Care Education/Training Program; Emergency Provider Family Medicine; Visit Provider Student in an Organized Health Care Education/Training Program
DX: T45.0X2A Poisoning by antiallergic and antiemetic drugs, intentional self-harm, initial encounter (principal); F31.5 Bipolar disorder, current episode depressed, severe, with psychotic features; T50.992A Poisoning by other drugs, medicaments and biological substances, intentional self-harm, initial encounter; G40.909 Epilepsy, unspecified, not intractable, without status epilepticus; E11.9 Type 2 diabetes mellitus without complications; Z79.899 Other long term (current) drug therapy; Z91.5 Personal history of self-harm
CPT/HCPCS: 36415; 36416; 71045; 80053; 80306; 80307; 81001; 81025; 82436; 82550; 82962; 83036; 83540; 83550; 83735; 83880; 84100; 84132; 84133; 84145; 84300; 84443; 85025; 87040; 93005; 94664; 96360; 96372; 99285; J1650; J3475; J3490; J7030